=== PATIENT | female | born 1990 | race Caucasian/White ===

== ENCOUNTER 2016-04-13 14:19 | Emergency (ER) | payer OTHER ==
[~2016-04-13] VITALS: Ht 167.6 cm; Wt 81.8 kg
[2016-04-13 14:23] VITALS: TEMP 97.7
[2016-04-13] MEDS ORDERED: KEPPRA1000 MG PO (14:29)
[2016-04-13] MEDS ORDERED: ZOFRAN 4MG T4 MG/TAB PO (14:29)
[2016-04-13] MEDS ORDERED: KEPPRA 500MG500 MG PO (14:30)
[2016-04-13 15:37] LABS: PH 7 (5-8); SQUAMOUS EPITHELIAL 0-2 /hpf; URINE APPEARANCE Clear; URINE BACTERIA Rare /hpf; URINE BILIRUBIN Negative (NEGATIVE); URINE BLOOD 2+ (NEGATIVE); URINE COLOR Straw; URINE GLUCOSE Negative (NEGATIVE); URINE KETONE Negative (NEGATIVE); URINE RBC 0-2 /hpf; URINE UROBILINOGEN Negative (NEGATIVE); URINE WBC 0-2 /hpf
[2016-04-13 15:44] LABS: BASO % 0.3 % (0.0-2.0); EOS % 0.1 % (0-4.0); GRAN % 80.8 % (42.2-75.2); LYMPH # 1.3 (1.2-3.4); LYMPH % 12.7 % (20.0-51.0); MEAN CELL VOLUME 87 fl (80.0-100.0); MEAN CORPUSCULAR HGB CONC 33 g/dl (33.0-37.0); MEAN PLATELET VOLUME 10.1 fl (7.4-10.4); MONO # 0.6 (0.1-0.6); MONO % 5.7 % (1.7-9.3); PLATELET COUNT 246 K/mm3 (130-400); REDCELL DISTRIBUTION WIDTH-CV 12.6 % (11.5-14.5); WHITE BLOOD COUNT 9.9 K/mm3 (4.8-10.8)
[2016-04-13 15:45] LABS: HEMATOCRIT 35.5 % (37.0-47.0); HEMOGLOBIN 11.6 g/dl (12.5-16.0); MEAN CORPUSCULAR HEMOGLOBIN 28 pg (27.0-31.0)
[2016-04-13 15:56] LABS: AMPHETAMINE URINE NEGATIVE; BARBITURATES URINE NEGATIVE; BENZODIAZEPINES URINE NEGATIVE; BUPRENORPHINE URINE NEGATIVE; METHADONE URINE NEGATIVE; OPIATES URINE NEGATIVE; OXYCODONE URINE NEGATIVE; PHENCYCLIDINE URINE NEGATIVE; PROPOXYPHENE URINE NEGATIVE; THC CANNABINOIDS URINE NEGATIVE
[2016-04-13 15:56] LABS: ALBUMIN 4.4 gm/dL (3.5-5.0); BILIRUBIN,TOTAL 0.5 mg/dL (0.0-1.0); CALCIUM 9.3 mg/dL (8.4-10.2); CREATININE, serum 0.69 mg/dL (0.52-1.25); POTASSIUM 3.8 mmol/L (3.4-5.0); TOTAL PROTEIN 7.6 gm/dL (6.4-8.2)
[2016-04-13 16:12] LABS: PROLACTIN 18.1 ng/mL (3.0-18.6)
[2016-04-13 17:04] VITALS: BP 115/58; PULSE 72
== END 2016-04-13 17:05 | disposition home or self-care (01) ==
LOC: COL.ER 14:19
PROVIDERS: Emergency Medicine
DX: G40.909 Epilepsy, unspecified, not intractable, without status epilepticus (principal); Z51.81 Encounter for therapeutic drug level monitoring; Z79.899 Other long term (current) drug therapy
CPT/HCPCS: J1953; J7030

== ENCOUNTER → 2016-05-29 | Outpatient (REF) ==
[~2016-05-29] MED LIST: KEPPRA 500MG500 MG PO; KEPPRA1000 MG PO; ZOFRAN 4MG T4 MG/TAB PO
== END ==
LOC: ZLAB.WCH 11:55
DX: Z01.89 Encounter for other specified special examinations (principal)

== ENCOUNTER → 2016-06-27 | Outpatient (REF) ==
[2016-06-27 20:36] LABS: TOTAL IRON BINDING CAPACITY 408 ug/dL (265-497)
[2016-06-27 21:02] LABS: FERRITIN 36 ng/mL (6-137)
== END ==
LOC: ZLAB.WCH 20:09
PROVIDERS: Nurse Practitioner Family
DX: Z01.89 Encounter for other specified special examinations (principal)